=== PATIENT | female | born 1995 | race Caucasian/White ===

== ENCOUNTER 2017-05-13 21:58 | Emergency (ER) | payer OTHER ==
[~2017-05-13] VITALS: Ht 152.4 cm; Wt 51.0 kg
[~2017-05-13 21:58] MED LIST: ALLE60TA PO; LO LTAB PO; SERT-129 PO; TRAZ50TA12 PO
[2017-05-13 22:15] VITALS: BP 144/67; PULSE 100; RESP 18; TEMP 97.9; O2SAT 100
[2017-05-14] MEDS ORDERED: ZITHTAB PO (21:26)
[2017-05-14] MEDS ORDERED: BENZ100 PO (21:26)
[2017-05-23] MEDS ORDERED: LO LTAB PO (14:54)
== END 2017-05-13 23:54 | disposition left against medical advice (07) ==
LOC: PHED 21:58
DX: R06.00 Dyspnea, unspecified (principal); Z53.21 Procedure and treatment not carried out due to patient leaving prior to being seen by health care provider
CPT/HCPCS: 99281

== ENCOUNTER 2017-05-14 21:05 | Emergency (ER) | payer OTHER ==
[~2017-05-14] VITALS: Ht 152.4 cm; Wt 51.3 kg
[2017-05-14 21:09] VITALS: BP 147/74; PULSE 98; RESP 16; TEMP 98; O2SAT 100
[2017-05-14] MEDS ORDERED: BENZ100 PO (21:26)
[2017-05-14] MEDS ORDERED: ZITHTAB PO (21:26)
--- NOTE | 2017-05-14 21:26 | PD ---
HPI Chief Complaint: Cold / Flu Symptoms Time Seen by Provider: 21:16 Travel History International Travel<30 days: No Contact w/Intl Traveler<30days: No Traveled to known affect area: No History of Present Illness HPI C/O SORE THROAT/COUGH/RUNNY NOSE INITIALLY ABOUT 12 DAYS AGO WAS TREATED WITH AMOXIL AND PREDNISONE FOR A COMPLETED THERAPY OF 7 DAYS OF BOTH. NOW PT STATES EVERYTHING HAS IMPROVED EXCEPT COUGH WHICH IS STILL PRESENT AND PRODUCTIVE OF YELLOW SPUTUM. CURRENTLY DENIES ASSOC FACTORS OF FEVER/N/V/D/CP/BACKPAIN/ ABDPAIN AT THIS POINT. PT TOLERATES PO WELL. PFSH Past Medical History Diminished Hearing: No Immunizations Current: Yes ?: Not LMP: mar 2017 Past Surgical History Tonsillectomy: Yes Social History Alcohol Use: No Tobacco Use: No Substance Use: No Allergies-Medications (Allergen,Severity, Reaction): Coded Allergies: No Known Allergies (Verified Adverse Reaction, Unknown, 05/13/17) Reported Meds & Prescriptions Reported Meds & Active Scripts Active Trazodone (Trazodone HCl) 50 Mg Tab 50 Mg PO HS Sertraline (Sertraline HCl) 100 Mg Tab 100 Mg PO DAILY Lo Loestrin Fe 1/10 (Norethindrone-Ethinyl Estradiol-Fe) 1-10 Mg-Mcg Tab 1 Tab PO DAILY Reported Eleni Allergy (Fexofenadine HCl) 60 Mg Tab 60 Mg PO DAILY Review of Systems Except as stated in HPI: all other systems reviewed are Neg General / Constitutional: No: Fever Eyes: No: Visual changes HENT: No: Headaches Cardiovascular: No: Chest Pain or Discomfort Respiratory: Positive: Cough Gastrointestinal: No: Abdominal Pain Genitourinary: No: Dysuria Musculoskeletal: No: Pain Skin: No Rash Neurologic: No: Weakness Psychiatric: No: Depression Endocrine: No: Polydipsia Hematologic/Lymphatic: No: Easy Bruising Physical Exam Narrative GENERAL: SKIN: Warm and dry. HEAD: Atraumatic. Normocephalic. EYES: Pupils equal and round. No scleral icterus. No injection or drainage. ENT: No nasal bleeding or discharge. Mucous membranes pink and moist. NECK: Trachea midline. No JVD. CARDIOVASCULAR: Regular rate and rhythm. RESPIRATORY: No accessory muscle use. GOOD TV, CLEAR EXCEPT LLL RONCHI GASTROINTESTINAL: Abdomen soft, non-tender, nondistended. MUSCULOSKELETAL: Extremities without clubbing, cyanosis, or edema. No obvious deformities. NEUROLOGICAL: Awake and alert. No obvious cranial nerve deficits. Motor grossly within normal limits. Five out of 5 muscle strength in the arms and legs. Normal speech. PSYCHIATRIC: Appropriate mood and affect; insight and judgment normal. Data Data Last Documented VS Vital Signs Date Time Temp Pulse Resp B/P (MAP) Pulse Ox O2 Delivery O2 Flow Rate FiO2 05/14/17 21:09 98.0 98 16 147/74 (98) 100 MDM Medical Decision Making Medical Screen Exam Complete: Yes Emergency Medical Condition: Yes Medical Record Reviewed: Yes Differential Diagnosis RESOLVING WALKING PNA V BRONCHITIS V RECURRENT PNA V PARTIALLY TREATED PNA Narrative Course PATIENT CLINICALLY IMPROVED BUT STILL HAS CLINICAL LUNG FINDINGS, WILL PROCEED WITH ADDITIONAL COURSE OF ZPAK. Diagnosis Primary Impression: PARTIALLY TREATED COMMUNITY ACQUIRED PNA Patient Instructions: Acute Bronchitis (ED), General Instructions Scripts Benzonatate (Tessalon Perles) 100 Mg Cap 100 MG PO TID Y for COUGH, #15 CAP 0 Refills Prov: Yinka Klein MD 05/14/17 Azithromycin (Zithromax Z-Danyel) 250 Mg Dspk 250 MG PO DIRECTED for Infection, #1 DSPK 0 Refills 500 MG (2 tabs) day 1, then 1 tab days 2-5. Prov: Yinka Klein MD 05/14/17 Disposition: 01 DISCHARGE HOME Condition: Stable Yinka Klein MD May 14, 2017 21:26
[2017-05-23] MEDS ORDERED: LO LTAB PO (14:54)
== END 2017-05-14 21:34 | disposition home or self-care (01) ==
LOC: PHEFT 21:05
DX: J18.9 Pneumonia, unspecified organism (principal)
CPT/HCPCS: 99284

== ENCOUNTER 2017-07-17 19:50 | Emergency (ER) | payer OTHER ==
[~2017-07-17] VITALS: Ht 152.4 cm; Wt 50.6 kg
[~2017-07-17 19:50] MED LIST changes: +BENZ100 PO; +ZITHTAB PO
[2017-07-17 19:56] VITALS: BP 121/57; PULSE 87; RESP 18; TEMP 98.7; O2SAT 99
--- NOTE | 2017-07-17 20:22 | PD ---
HPI Chief Complaint: Skin Problem Time Seen by Provider: 20:16 Travel History International Travel<30 days: No Contact w/Intl Traveler<30days: No Traveled to known affect area: No History of Present Illness HPI 22-year-old female presents to the emergency department for complaint of 5 days of soft tissue swelling to the posterior occiput with drainage of purulent contents today. No fever no chills no nausea no vomiting no headache no neck pain. Patient is not diabetic. Patient denies any known injury. No prior history of cysts or abscess. Patient rates discomfort 5/10 intensity. PFSH Past Medical History Narrative Medical Anxiety depression; no surgery; no tobacco use alcohol use substance use; nursing notes reviewed Anxiety: Yes Depression: Yes Diminished Hearing: No Immunizations Current: Yes Tetanus Vaccination: < 5 Years Influenza Vaccination: No ?: Not LMP: 05-21-17 Past Surgical History Surgical History: No Previous Surgery Tonsillectomy: Yes Social History Alcohol Use: No Tobacco Use: No Substance Use: No Allergies-Medications (Allergen,Severity, Reaction): Coded Allergies: No Known Allergies (Verified Adverse Reaction, Unknown, 07/17/17) Reported Meds & Prescriptions Reported Meds & Active Scripts Active Lo Loestrin Fe 10 (Norethindrone-Ethinyl Estradiol-Fe) 1-10 Mg-Mcg Tab 1 Tab PO DAILY Trazodone (Trazodone HCl) 50 Mg Tab 50 Mg PO HS Sertraline (Sertraline HCl) 100 Mg Tab 100 Mg PO DAILY Review of Systems General / Constitutional: No: Fever, Chills HENT: Positive: Masses (Posterior scalp), No: Congestion, Neck Pain Cardiovascular: No: Chest Pain or Discomfort Respiratory: No: Shortness of Breath Gastrointestinal: No: Nausea, Vomiting Musculoskeletal: No: Pain Skin: Positive Lumps (Posterior scalp) Hematologic/Lymphatic: No: Lymph Node Enlargement Physical Exam Narrative GENERAL: Well-developed well-nourished female no acute distress no respiratory distress SKIN: Warm and dry. HEAD: Normocephalic. Attention posterior scalp flexion on 1.5 cm x 1.5 cm pointing fluctuant indurated cluster soft tissue swelling with spontaneous purulent drainage. EYES: No scleral icterus. No injection or drainage. NECK: Supple, trachea midline. No JVD or lymphadenopathy. Data Data Last Documented VS Vital Signs Date Time Temp Pulse Resp B/P (MAP) Pulse Ox O2 Delivery O2 Flow Rate FiO2 07/17/17 20:03 (78) 07/17/17 19:56 98.7 87 18 99 Orders Orders Lidocaine Pf 1% Inj (Xylocaine-Mpf 1% In (07/17/17 20:30) Sulfamet-Trimeth Ds 800-160 Mg (Bactrim (07/17/17 21:00) Wound Culture And Gram Stain (07/17/17 20:57) Ed Discharge Order (07/17/17 20:57) MDM Medical Decision Making Medical Screen Exam Complete: Yes Emergency Medical Condition: Yes Medical Record Reviewed: Yes Differential Diagnosis Abscess, furuncle, carbuncle Narrative Course After informed verbal consent area was sterilely prepped and draped with Betadine 1% lidocaine was injected for local anesthetic effect 11 blade was used to make simple incision purulent drainage was expressed site was copiously irrigated quarter inch iodoform gauze was packed into the area. Patient given Bactrim DS 1 dose and prescribed Bactrim DS. Patient referred to dermatology for cyst excision. Patient recommended to day recheck in emergency department with primary care provider for packing removal. Procedures Procedure Narrative After the risks and benefits were discussed the following procedure was performed: INCISION AND DRAINAGE OF ABSCESS: The area was prepped and was sterilely draped. A subcutaneous wheal of 1 % Xylocaine with a total number 2 mL was used to anesthetize the area. The area was properly anesthetized. A number 11 scalpel was used to make a 1 -cm incision across the area of the abscess. Cultures were obtained. The abscess was drained an irrigated with normal saline. Quarter inch iodoform packing was placed in the wound. Sterile dressing applied. Patient advised to have packing removed in two days. Diagnosis Primary Impression: Scalp abscess Referrals: [facility] call for appointment Primary Care Physician 2 days Patient Instructions: General Instructions Additional Instructions: Keep wound site clean and dry Packing removal at 2 days Complete course of antibiotic as prescribed Follow-up with primary care provider and/or floor care technician Return to the emergency department for any concerns or change in condition May use as needed acetaminophen/Tylenol every 4 hours and/or ibuprofen/Advil/ Motrin every 6-8 hours for fever 100.4F or greater or for pain associated with inflammation Med/Other Pt SpecificInfo: Prescription(s) given Scripts Sulfamethoxazole-Trimethoprim (Bactrim DS) 800-160 Mg Tab 1 TAB PO BID for Infection, #14 TAB 0 Refills Prov: Anita Munroe MD 07/17/17 Disposition: 01 DISCHARGE HOME Condition: Stable Anita Munroe MD Jul 17, 2017 20:22
[2017-07-17] MEDS ORDERED: LIDOCAINE HCL 1% PF 10 ML VIAL INFIL ONE (20:30)
[2017-07-17] MEDS ORDERED: BACT800T5 PO (20:58)
[2017-07-17] MEDS ORDERED: SULFAMETHOXAZOLE-TRIMETHOPRIM DS 800-160 MG TAB PO ONE (21:00)
== END 2017-07-17 21:16 | disposition home or self-care (01) ==
LOC: PHEFT 19:50
DX: L02.811 Cutaneous abscess of head [any part, except face] (principal); B95.62 Methicillin resistant Staphylococcus aureus infection as the cause of diseases classified elsewhere
CPT/HCPCS: 10060; 86403; 87070; 87186; 87205